=== PATIENT | female | born 1990 ===

== ENCOUNTER 2018-09-05 20:05 | Inpatient (IN) | payer OTHER ==
[2018-09-05] MEDS ORDERED: HYDROmorphONE 0.5 MG/0.5 ML SYG IV (20:30)
[2018-09-05] MEDS ORDERED: oxyCODONE 5 MG TAB PO (20:30)
[2018-09-05] MEDS: DOCUSATE SODIUM 100 MG CAP PO (21:00)
[2018-09-05] MEDS: METHOCARBAMOL 500 MG TAB PO (21:42)
[2018-09-05] MEDS: ENOXAPARIN 30 MG/0.3 ML SYG SC (21:47)
[2018-09-05] MEDS ORDERED: BISACODYL (EC) 5 MG TAB PO (22:30)
[2018-09-05] MEDS ORDERED: LACTULOSE 30ML CUP PO (22:30)
[2018-09-05] MEDS ORDERED: ONDANSETRON 4 MG INJ IV (22:30)
[2018-09-05] MEDS ORDERED: SENNA TAB PO (22:30)
[2018-09-05] MEDS ORDERED: BISACODYL 10 MG SUPP PR (22:30)
[2018-09-05] MEDS ORDERED: MAGNESIUM HYDROXIDE 30ML CUP PO (22:30)
[2018-09-05] MEDS: oxyCODONE 5 MG TAB PO (23:02)
[2018-09-05 23:59] LABS: ADD UMIC YES; UR ASCORBIC ACID NEGATIVE (NEGATIVE); UR BACTERIA FEW /HPF (NONE SEEN); UR BILIRUBIN (Dip) NEGATIVE (NEGATIVE); UR BLOOD (Dip) 1+ mg/dL (NEGATIVE); UR CLARITY SLIGHTLY CLOUDY (CLEAR); UR COLOR YELLOW (YELLOW); UR GLUCOSE (Dip) NEGATIVE (NEGATIVE); UR KETONES (Dip) NEGATIVE (NEGATIVE); UR LEUKOCYTE ESTERASE (Dip) NEGATIVE Leu/ul (NEGATIVE); UR MUCUS FEW /HPF (NONE SEEN); UR NITRITE (Dip) NEGATIVE (NEGATIVE); UR RBC 2 /HPF (0-5); UR SPECIFIC GRAVITY (Dip) 1.016 (1.003-1.030); UR SQUAMOUS EPITHELIAL CELL FEW /HPF (FEW); UR TOTAL PROTEIN (Dip) NEGATIVE (NEGATIVE); UR UROBILINOGEN (Dip) 2+ mg/dL (NEGATIVE); UR WBC 1 /HPF (0-5)
[2018-09-06] MEDS: IBUPROFEN 600 MG TAB PO ×5 (00:01→23:54)
[2018-09-06 07:18] LABS: ADD MAN DIFF? NO
[2018-09-06 07:27] LABS: WHITE BLOOD COUNT 5.7 10^3/ul (4.8-10.8)
[2018-09-06 07:27] LABS: BASOPHILS % 0.5 % (0.0-2.0); EOSINOPHILS # 0.3 10^3/ul (0.0-0.5); EOSINOPHILS % 4.6 % (0.0-7.0); HEMATOCRIT 31.7 % (37.0-47.0); HEMOGLOBIN 9.9 g/dl (12.0-16.0); LYMPHOCYTES # 1.8 10^3/ul (0.8-2.9); LYMPHOCYTES % 32.1 % (15.0-51.0); MEAN CORPUSCULAR HEMOGLOBIN 29.6 pg (29.0-33.0); MEAN CORPUSCULAR HGB CONC 31.2 g/dl (32.0-37.0); MEAN CORPUSCULAR VOLUME 94.6 fl (82.0-101.0); MEAN PLATELET VOLUME 10.7 fl (7.4-10.4); MONOCYTE # 0.9 10^3/ul (0.3-0.9); MONOCYTES % 15.4 % (0.0-11.0); NEUTROPHIL # 2.6 10^3/ul (1.6-7.5); NEUTROPHILS % 45.6 % (39.0-77.0); PLATELET COUNT 436 10^3/UL (140-415); RED BLOOD COUNT 3.35 10^6/ul (4.20-5.40); RED CELL DISTRIBUTION WIDTH 13.4 % (11.5-14.5)
[2018-09-06 07:49] LABS: ALANINE AMINOTRANSFERASE 110 IU/L (13-69); ALBUMIN 3.3 g/dl (3.3-4.9); ALKALINE PHOSPHATASE 116 IU/L (42-121); ANION GAP 2 (5-13); ASPARTATE AMINO TRANSFERASE 71 IU/L (15-46); BILIRUBIN,INDIRECT 0.6 mg/dl (0-1.1); BILIRUBIN,TOTAL 0.6 mg/dl (0.2-1.3); BLOOD UREA NITROGEN 17 mg/dl (7-20); CALCIUM 9.2 mg/dl (8.4-10.2); CARBON DIOXIDE 30 mmol/L (21-31); CHLORIDE 109 mmol/L (97-110); CREATININE 0.73 mg/dl (0.44-1.00); Estimated GFR > 60 mL/min (>60); GLUCOSE 97 mg/dl (70-220); POTASSIUM 4.4 mmol/L (3.5-5.1); SODIUM 141 mmol/L (135-144); TOTAL PROTEIN 6.6 g/dl (6.1-8.1)
[2018-09-06] MEDS: METHOCARBAMOL 500 MG TAB PO ×3 (08:47→21:17)
[2018-09-06] MEDS: oxyCODONE 5 MG TAB PO ×2 (08:47→21:18)
[2018-09-06] MEDS: DOCUSATE SODIUM 100 MG CAP PO ×2 (08:48→21:17)
[2018-09-06] MEDS: ENOXAPARIN 30 MG/0.3 ML SYG SC ×2 (08:50→21:16)
[2018-09-06 08:53] LABS: HAAIG REFLEX REFLEX FILED
[2018-09-06] MEDS ORDERED: DOCUSATE SODIUM 100 MG CAP PO (09:00)
[2018-09-06] MEDS: POLYETHYLENE GLYCOL 17 GM PACKET PO ×3 (09:00→21:00)
[2018-09-06 09:32] LABS: HEPATITIS B SURFACE ANTIGEN NEGATIVE (NEGATIVE)
[2018-09-06 09:50] LABS: HEPATITIS B CORE ANTIBODY NEGATIVE (NEGATIVE); HEPATITIS C VIRAL ANTIBODY NEGATIVE (NEGATIVE)
[2018-09-06] MEDS: MAGNESIUM HYDROXIDE 30ML CUP PO (12:07)
[2018-09-07] MEDS: IBUPROFEN 600 MG TAB PO ×4 (06:18→23:51)
[2018-09-07 07:11] LABS: ADD MAN DIFF? NO
[2018-09-07 07:19] LABS: BASOPHILS % 0.5 % (0.0-2.0); EOSINOPHILS # 0.2 10^3/ul (0.0-0.5); EOSINOPHILS % 3.6 % (0.0-7.0); HEMATOCRIT 32.7 % (37.0-47.0); HEMOGLOBIN 10.2 g/dl (12.0-16.0); LYMPHOCYTES % 30.2 % (15.0-51.0); MEAN CORPUSCULAR HEMOGLOBIN 29.4 pg (29.0-33.0); MEAN CORPUSCULAR HGB CONC 31.2 g/dl (32.0-37.0); MEAN CORPUSCULAR VOLUME 94.2 fl (82.0-101.0); MEAN PLATELET VOLUME 10.5 fl (7.4-10.4); MONOCYTES % 14.7 % (0.0-11.0); NEUTROPHIL # 3.3 10^3/ul (1.6-7.5); NEUTROPHILS % 49.6 % (39.0-77.0); PLATELET COUNT 498 10^3/UL (140-415); RED BLOOD COUNT 3.47 10^6/ul (4.20-5.40); RED CELL DISTRIBUTION WIDTH 13.8 % (11.5-14.5)
[2018-09-07 07:19] LABS: WHITE BLOOD COUNT 6.6 10^3/ul (4.8-10.8)
[2018-09-07 07:58] LABS: ANION GAP 5 (5-13); BLOOD UREA NITROGEN 17 mg/dl (7-20); CALCIUM 9.3 mg/dl (8.4-10.2); CARBON DIOXIDE 27 mmol/L (21-31); CHLORIDE 107 mmol/L (97-110); CREATININE 0.64 mg/dl (0.44-1.00); Estimated GFR > 60 mL/min (>60); GLUCOSE 91 mg/dl (70-220); MAGNESIUM 2.2 mg/dl (1.7-2.5); PHOSPHORUS 4.6 mg/dl (2.5-4.9); POTASSIUM 4.4 mmol/L (3.5-5.1); SODIUM 139 mmol/L (135-144)
[2018-09-07] MEDS: MAGNESIUM HYDROXIDE 30ML CUP PO (09:00)
[2018-09-07] MEDS: POLYETHYLENE GLYCOL 17 GM PACKET PO ×2 (09:47→20:37)
[2018-09-07] MEDS: DOCUSATE SODIUM 100 MG CAP PO ×2 (09:47→20:34)
[2018-09-07] MEDS: METHOCARBAMOL 500 MG TAB PO ×3 (09:47→20:35)
[2018-09-07] MEDS: ENOXAPARIN 30 MG/0.3 ML SYG SC ×2 (09:56→20:38)
[2018-09-07] MEDS: oxyCODONE 5 MG TAB PO ×3 (12:37→20:36)
[2018-09-08] MEDS: oxyCODONE 5 MG TAB PO ×4 (04:11→21:01)
[2018-09-08] MEDS: IBUPROFEN 600 MG TAB PO ×4 (06:35→23:58)
[2018-09-08] MEDS: POLYETHYLENE GLYCOL 17 GM PACKET PO ×2 (09:00→20:53)
[2018-09-08] MEDS: METHOCARBAMOL 500 MG TAB PO ×3 (10:06→20:53)
[2018-09-08] MEDS: DOCUSATE SODIUM 100 MG CAP PO ×2 (10:07→20:53)
[2018-09-08] MEDS: ENOXAPARIN 30 MG/0.3 ML SYG SC ×2 (10:09→20:54)
[2018-09-09] MEDS: IBUPROFEN 600 MG TAB PO ×4 (06:41→23:47)
[2018-09-09] MEDS: DOCUSATE SODIUM 100 MG CAP PO ×2 (08:16→20:36)
[2018-09-09] MEDS: METHOCARBAMOL 500 MG TAB PO ×3 (08:16→20:39)
[2018-09-09] MEDS: POLYETHYLENE GLYCOL 17 GM PACKET PO ×2 (08:16→20:43)
[2018-09-09] MEDS: oxyCODONE 5 MG TAB PO ×3 (08:17→20:37)
[2018-09-09] MEDS: ENOXAPARIN 30 MG/0.3 ML SYG SC ×2 (08:19→20:39)
[2018-09-10] MEDS: IBUPROFEN 600 MG TAB PO ×3 (06:22→17:44)
[2018-09-10] MEDS: POLYETHYLENE GLYCOL 17 GM PACKET PO ×2 (08:52→21:00)
[2018-09-10] MEDS: oxyCODONE 5 MG TAB PO ×3 (08:53→19:38)
[2018-09-10] MEDS: METHOCARBAMOL 500 MG TAB PO ×3 (08:53→20:13)
[2018-09-10] MEDS: DOCUSATE SODIUM 100 MG CAP PO ×2 (08:53→20:14)
[2018-09-10] MEDS: ENOXAPARIN 30 MG/0.3 ML SYG SC ×2 (08:56→20:13)
[2018-09-11] MEDS: IBUPROFEN 600 MG TAB PO ×5 (00:32→23:55)
[2018-09-11] MEDS: oxyCODONE 5 MG TAB PO ×3 (00:42→21:04)
[2018-09-11] MEDS: POLYETHYLENE GLYCOL 17 GM PACKET PO ×3 (09:00→23:57)
[2018-09-11] MEDS: DOCUSATE SODIUM 100 MG CAP PO ×2 (09:44→21:04)
[2018-09-11] MEDS: METHOCARBAMOL 500 MG TAB PO ×3 (09:44→21:04)
[2018-09-11] MEDS: ENOXAPARIN 30 MG/0.3 ML SYG SC ×2 (09:46→21:06)
[2018-09-11] MEDS: ONDANSETRON 4 MG TAB PO (12:51)
[2018-09-12] MEDS: IBUPROFEN 600 MG TAB PO ×4 (06:00→23:58)
[2018-09-12] MEDS: oxyCODONE 5 MG TAB PO ×2 (06:15→17:54)
[2018-09-12 07:20] LABS: ADD MAN DIFF? NO
[2018-09-12 07:24] LABS: WHITE BLOOD COUNT 6.6 10^3/ul (4.8-10.8)
[2018-09-12 07:24] LABS: BASOPHIL # 0.1 10^3/ul (0.0-0.1); BASOPHILS % 0.8 % (0.0-2.0); EOSINOPHILS # 0.3 10^3/ul (0.0-0.5); EOSINOPHILS % 4.4 % (0.0-7.0); HEMATOCRIT 34.7 % (37.0-47.0); HEMOGLOBIN 10.8 g/dl (12.0-16.0); LYMPHOCYTES # 2.1 10^3/ul (0.8-2.9); LYMPHOCYTES % 31.3 % (15.0-51.0); MEAN CORPUSCULAR HEMOGLOBIN 29.3 pg (29.0-33.0); MEAN CORPUSCULAR HGB CONC 31.1 g/dl (32.0-37.0); MEAN CORPUSCULAR VOLUME 94.3 fl (82.0-101.0); MEAN PLATELET VOLUME 10.4 fl (7.4-10.4); MONOCYTE # 0.7 10^3/ul (0.3-0.9); MONOCYTES % 10.5 % (0.0-11.0); NEUTROPHIL # 3.5 10^3/ul (1.6-7.5); NEUTROPHILS % 52.5 % (39.0-77.0); PLATELET COUNT 543 10^3/UL (140-415); RED BLOOD COUNT 3.68 10^6/ul (4.20-5.40); RED CELL DISTRIBUTION WIDTH 13.3 % (11.5-14.5)
[2018-09-12 07:46] LABS: ALANINE AMINOTRANSFERASE 64 IU/L (13-69); ALBUMIN 3.5 g/dl (3.3-4.9); ALKALINE PHOSPHATASE 112 IU/L (42-121); ASPARTATE AMINO TRANSFERASE 35 IU/L (15-46); BILIRUBIN,INDIRECT 0.5 mg/dl (0-1.1); BILIRUBIN,TOTAL 0.5 mg/dl (0.2-1.3); TOTAL PROTEIN 6.6 g/dl (6.1-8.1)
[2018-09-12 07:59] LABS: ANION GAP 12 (5-13); BLOOD UREA NITROGEN 15 mg/dl (7-20); CALCIUM 9.4 mg/dl (8.4-10.2); CARBON DIOXIDE 27 mmol/L (21-31); CHLORIDE 102 mmol/L (97-110); CREATININE 0.61 mg/dl (0.44-1.00); Estimated GFR > 60 mL/min (>60); GLUCOSE 96 mg/dl (70-220); MAGNESIUM 1.9 mg/dl (1.7-2.5); PHOSPHORUS 4.8 mg/dl (2.5-4.9); POTASSIUM 4.2 mmol/L (3.5-5.1); SODIUM 141 mmol/L (135-144)
[2018-09-12] MEDS: POLYETHYLENE GLYCOL 17 GM PACKET PO ×2 (09:01→20:31)
[2018-09-12] MEDS: DOCUSATE SODIUM 100 MG CAP PO ×2 (09:01→20:29)
[2018-09-12] MEDS: METHOCARBAMOL 500 MG TAB PO ×3 (09:01→20:29)
[2018-09-12] MEDS: ENOXAPARIN 30 MG/0.3 ML SYG SC ×2 (09:02→20:30)
[2018-09-12] MEDS: DICLOFENAC SODIUM 1% GEL 100 GM TUBE TP ×3 (12:18→20:32)
[2018-09-12] MEDS: MELATONIN 5 MG TABLET PO (23:58)
[2018-09-13] MEDS: IBUPROFEN 600 MG TAB PO ×3 (06:12→17:29)
[2018-09-13] MEDS: oxyCODONE 5 MG TAB PO ×2 (08:47→13:04)
[2018-09-13] MEDS: ONDANSETRON 4 MG TAB PO (08:48)
[2018-09-13] MEDS: POLYETHYLENE GLYCOL 17 GM PACKET PO ×2 (09:51→20:23)
[2018-09-13] MEDS: DICLOFENAC SODIUM 1% GEL 100 GM TUBE TP ×4 (09:53→20:23)
[2018-09-13] MEDS: ENOXAPARIN 30 MG/0.3 ML SYG SC ×2 (09:58→20:22)
[2018-09-13] MEDS: METHOCARBAMOL 500 MG TAB PO ×3 (09:59→20:22)
[2018-09-13] MEDS: DOCUSATE SODIUM 100 MG CAP PO ×2 (09:59→20:22)
[2018-09-14] MEDS: IBUPROFEN 600 MG TAB PO ×5 (06:17→23:44)
[2018-09-14] MEDS: METHOCARBAMOL 500 MG TAB PO ×3 (08:31→20:39)
[2018-09-14] MEDS: DOCUSATE SODIUM 100 MG CAP PO ×2 (08:31→20:39)
[2018-09-14] MEDS: oxyCODONE 5 MG TAB PO ×4 (08:31→23:43)
[2018-09-14] MEDS: POLYETHYLENE GLYCOL 17 GM PACKET PO ×2 (08:31→20:39)
[2018-09-14] MEDS: DICLOFENAC SODIUM 1% GEL 100 GM TUBE TP ×4 (08:32→20:46)
[2018-09-14] MEDS: ENOXAPARIN 30 MG/0.3 ML SYG SC ×2 (08:36→20:44)
[2018-09-14] MEDS: ACETAMINOPHEN 325 MG TAB PO (20:38)
[2018-09-14] MEDS: MAGNESIUM HYDROXIDE 30ML CUP PO (21:47)
[2018-09-15] MEDS: oxyCODONE 5 MG TAB PO ×4 (06:31→22:11)
[2018-09-15] MEDS: IBUPROFEN 600 MG TAB PO (06:31)
[2018-09-15] MEDS ORDERED: IBUPROFEN 600 MG TAB PO (08:30)
[2018-09-15] MEDS: METHOCARBAMOL 500 MG TAB PO ×3 (09:15→20:50)
[2018-09-15] MEDS: POLYETHYLENE GLYCOL 17 GM PACKET PO ×2 (09:16→20:50)
[2018-09-15] MEDS: CALCIUM CARBONATE 500 MG CHEW TAB PO ×2 (09:16→17:38)
[2018-09-15] MEDS: DOCUSATE SODIUM 100 MG CAP PO ×2 (09:16→20:50)
[2018-09-15] MEDS: ENOXAPARIN 30 MG/0.3 ML SYG SC ×2 (09:16→21:12)
[2018-09-15] MEDS: PANTOPRAZOLE (EC) 40 MG TAB PO (09:16)
[2018-09-15] MEDS: DICLOFENAC SODIUM 1% GEL 100 GM TUBE TP ×4 (09:17→20:55)
[2018-09-15] MEDS: ONDANSETRON 4 MG TAB PO (23:49)
[2018-09-16] MEDS: PANTOPRAZOLE (EC) 40 MG TAB PO (06:29)
[2018-09-16] MEDS: oxyCODONE 5 MG TAB PO ×2 (06:29→10:46)
[2018-09-16] MEDS: DOCUSATE SODIUM 100 MG CAP PO (08:14)
[2018-09-16] MEDS: POLYETHYLENE GLYCOL 17 GM PACKET PO (08:14)
[2018-09-16] MEDS: METHOCARBAMOL 500 MG TAB PO (08:14)
[2018-09-16] MEDS: DICLOFENAC SODIUM 1% GEL 100 GM TUBE TP (08:15)
[2018-09-16] MEDS: ENOXAPARIN 30 MG/0.3 ML SYG SC (08:19)
== END 2018-09-16 11:00 | disposition home health service (06) | DRG 560 ==
LOC: VRC 09-07 00:36
PROC: F07Z5ZZ Bed Mobility Treatment (ICD-10-PCS; principal; 2018-09-05)
PROC: F08Z2ZZ Grooming/Personal Hygiene Treatment (ICD-10-PCS; 2018-09-05)
PROC: F06Z6ZZ Communicative/Cognitive Integration Skills Treatment (ICD-10-PCS; 2018-09-05)
DX: S32.591D Other specified fracture of right pubis, subsequent encounter for fracture with routine healing (principal); N39.0 Urinary tract infection, site not specified; S62.102D Fracture of unspecified carpal bone, left wrist, subsequent encounter for fracture with routine healing; S32.10XD Unspecified fracture of sacrum, subsequent encounter for fracture with routine healing; R52 Pain, unspecified; R31.9 Hematuria, unspecified; D64.9 Anemia, unspecified; K59.00 Constipation, unspecified; F06.31 Mood disorder due to known physiological condition with depressive features; F43.10 Post-traumatic stress disorder, unspecified; D47.3 Essential (hemorrhagic) thrombocythemia
CPT/HCPCS: 80048; 80053; 80076; 81001; 83735; 84100; 85025; 86704; 86709; 86803; 87081; 87086; 87340; 90686; 92507; 97110; 97112; 97116; 97163; 97166; 97530; 97535